=== PATIENT | female | born 1965 | race Caucasian/White ===

== ENCOUNTER 2023-06-18 10:46 | Day surgery (SDC) | payer OTHER ==
[~2023-06-18] VITALS: Ht 152.4 cm; Wt 81.6 kg
[2023-06-18] MEDS ORDERED: MIDAZOLAM 2 MG/2 ML VIAL ONE (13:26)
[2023-06-18] MEDS ORDERED: fentaNYL citrate 0.05 MG/ML VIAL ONE (13:26)
[2023-06-18] MEDS ORDERED: LIDOCAINE 2% 100 MG/5 ML UJET TP ONE (13:26)
[2023-06-18] MEDS ORDERED: fentaNYL citrate 0.05 MG/ML VIAL IVP ONE (14:35)
== END 2023-06-18 14:15 | disposition home or self-care (01) ==
LOC: MDS 10:46 → MMU 10:51 → MDS 14:15
PROVIDERS: ATTEND Internal Medicine Gastroenterology
DX: Z12.11 Encounter for screening for malignant neoplasm of colon (principal); D12.3 Benign neoplasm of transverse colon; K57.30 Diverticulosis of large intestine without perforation or abscess without bleeding; J45.909 Unspecified asthma, uncomplicated; F32.A Depression, unspecified; M19.90 Unspecified osteoarthritis, unspecified site; Z80.0 Family history of malignant neoplasm of digestive organs; Z98.890 Other specified postprocedural states; Z79.899 Other long term (current) drug therapy
CPT/HCPCS: 45385; J3010; J2250